=== PATIENT | male | born 1985 | race Caucasian/White ===

== ENCOUNTER 2025-08-12 08:50 | Emergency (ER) | payer BC, SELFPAY ==
[2025-08-12 09:28] VITALS: BP 142/90; PULSE 63; TEMP 36.7; O2SAT 98; BMI 37.3
--- NOTE | 2025-08-12 10:02 | ED_ITS ---
HPI HPI - General Adult General Chief complaint: Eye Problems Stated complaint: L EYE IRRITATION Time Seen by Provider: 08/12/25 09:40 Source: patient Mode of arrival: walk-in History of Present Illness HPI narrative: 39-year-old male presented to the emergency department for left eye irritation. He thinks something went into his eye. He was working in his barn and thinks he may have gotten a piece of wood and it. It feels like it is moving around and has been like this continuously since 6 PM yesterday. No symptoms in the right eye. Related Data Home Medications ?Medication ?Instructions ?Recorded ?Confirmed azelastine 137 mcg (0.1 %) nasal intranasal 08/12/25 spray clobetasol 0.05 % topical ointment topical 08/12/25 omeprazole 20 mg capsule,delayed mg 08/12/25 release rimegepant 75 mg disintegrating mg 08/12/25 tablet (Nurtec ODT) tizanidine 2 mg tablet mg 08/12/25 topiramate 50 mg tablet mg 08/12/25 Allergies Allergy/AdvReac Type Severity Reaction Status Date / Time Penicillins Allergy throat Verified 08/12/25 09:26 swelling Opioid HPI Opioid Management Most Recent Opioid Data: Last Pain Scale 7 Today, 09:28 Review of Systems ROS Narrative A ten point review of systems is negative except as noted above. PFSH PFSH Social History Little interest or pleasure in doing things: not at all Feeling down, depressed, or hopeless: not at all Exam Narrative Exam Narrative: Nurses note and vital signs reviewed General:The patient appears well and in no apparent distress.Patient is resting comfortably on cart. Skin:Warm, dry, no pallor noted.There is no rash noted. Head:Normocephalic, atraumatic Eye: Right eye is normal. Left conjunctiva minimally injected. There is no foreign body found with lid eversion and no corneal abrasions with fluorescein staining and Herbert lamp examination. Globe intact. Ears, Nose, Mouth, and Throat: oral mucosa is moist. Nares patent. Cardiovascular:Regular Rate and Rhythm Respiratory:Patient is in no distress, no accessory muscle use Back:non-tender GI: Soft and nontender Musculoskeletal: No joint swelling Neurological:A&O, normal speech Psychiatric:Cooperative Constitutional Vital Signs, click to edit/add: Last Vital Signs Temp 98.1 F 08/12/25 09:28 Pulse 63 08/12/25 09:28 Resp 16 08/12/25 09:28 BP 142/90 H 08/12/25 09:28 Pulse Ox 98 08/12/25 09:28 O2 Del Method Room Air 08/12/25 09:28 Course Vital Signs Vital signs: Vital Signs Temperature 98.1 F 08/12/25 09:28 Pulse Rate 63 08/12/25 09:28 Respiratory Rate 16 08/12/25 09:28 Blood Pressure 142/90 H 08/12/25 09:28 Pulse Oximetry 98 08/12/25 09:28 Oxygen Delivery Method Room Air 08/12/25 09:28 Temperature 98.1 F 08/12/25 09:28 Pulse Rate 63 08/12/25 09:28 Respiratory Rate 16 08/12/25 09:28 Blood Pressure 142/90 H 08/12/25 09:28 Pulse Oximetry 98 08/12/25 09:28 Oxygen Delivery Method Room Air 08/12/25 09:28 Medical Decision Making MDM Narrative Medical decision making narrative: No visible foreign body was found on exam and no corneal abrasion present. We have irrigated his eye with Alden lens irrigation and his symptom has resolved completely. He is able to be discharged home. Treatment diagnosis and follow- up were discussed with the patient. Differential Diagnosis Differential Diagnosis: Corneal abrasion, corneal foreign body, conjunctival foreign body Discharge Plan Discharge Chief Complaint: Eye Problems Clinical Impression: Foreign body in eye Patient Disposition: Home, Self-Care Time of Disposition Decision: 10:55 Condition: Good Mode of Transportation: Private Vehicle Prescriptions / Home Meds: No Action tizanidine 2 mg tablet omeprazole 20 mg capsule,delayed release(DR/EC) clobetasol 0.05 % ointment TOPICAL azelastine 137 mcg (0.1 %) spray,non-aerosol INTRANASAL topiramate 50 mg tablet Nurtec ODT 75 mg tablet,disintegrating Print Language: Israeli Instructions: Eye Foreign Body (ED) Referrals: JAMSHID GOODWIN [Primary Care Provider, Family Practice] - 1 week
[2025-08-12] MEDS: FLUORESCEIN SODIUM 1 MG STRIP OP (10:16)
[2025-08-12] MEDS: TETRACAINE HCL 0.5% OP SOL 80 DROP/4 ML BOTTLE OP (10:16)
[2025-08-12] MEDS: 0.9 % SODIUM CHLORIDE 1,000 ML 1000 ML IRR (10:28)
== END 2025-08-12 11:01 | disposition home or self-care (01) ==
PROVIDERS: Emergency Provider Emergency Medicine; PCP Family Medicine
DX: T15.92XA Foreign body on external eye, part unspecified, left eye, initial encounter (principal); W44.9XXA Unspecified foreign body entering into or through a natural orifice, initial encounter; Y92.71 Barn as the place of occurrence of the external cause
CPT/HCPCS: 99284